=== PATIENT | female | born 1970 | race Caucasian/White ===

== ENCOUNTER → 2016-11-09 | Outpatient (CLI) | payer BC ==
[~2016-11-09] MED LIST: ALBUTEROL MDI; ATEN25TA PO; BENZ100C18 PO; CEFP500T4 PO; CTLP20T; DOXY100C2 PO; HYDR1TAB PO; LISI-596; LISI20TA; LORA0.5T PO; METH4TAB PO; NAPR-243 PO; PHEN37.555 PO
--- NOTE | 2016-11-09 16:09 | Diagnostic Imaging Report ---
PROCEDURE: MRI left joint lower extremity without contrast. TECHNIQUE: Multiplanar, multisequence non contrast-enhanced MRI of the left lower extremity was accomplished. INDICATION: Left knee injury nine months ago. Persistent left knee pain. FINDINGS: There is a dkcbx-bi-skvlggyc suprapatellar effusion. There is a small amount of fluid density anterior to the patella suggestive of prepatellar bursitis. There is a small Espinosa's cyst with a layering low intensity T2 and isointense T1 signal abnormality. The Espinosa's cyst measures 1.9 x 2.3 x 0.9 cm, and the internal abnormal intensity measures 1.3 cm, probably related to debris or a loose body. The extensor mechanism is intact. The ACL and PCL are intact. There is a complex tear involving the posterior root of the medial meniscus with a horizontal tear involving the posterior horn and the body of the medial meniscus. The anterior horn is relatively spared. The lateral meniscus appears intact. There is subchondral edema seen in the medial tibial condyle along the lateral aspect. This is likely degenerative reactive edema. There is 50-75% thinning of the cartilage in the medial compartment, more pronounced laterally. The cartilage in the lateral compartment is preserved. The cartilage in the patellofemoral compartment demonstrates slight fissuring and mild thinning along the medial facet. The MCL and the lateral collateral ligamentous complex appear intact. IMPRESSION: 1. Medial meniscus tears involving the posterior root, posterior horn, and the body of the meniscus. 2. There is a moderate degree of cartilage thinning and reactive subchondral edema in the medial compartment. 3. Small amount of fluid anterior to the patella suggestive of prepatellar bursitis. 4. Waqzj-gu-cgqddkvv suprapatellar effusion. 5. Small Espinosa's cyst containing dependent debris or loose body. Dictated by: Dictated on workstation # [id number]
== END ==
LOC: RAD 15:01
PROVIDERS: ATTEND Family Medicine
DX: S83.242A Other tear of medial meniscus, current injury, left knee, initial encounter (principal); M25.462 Effusion, left knee; M71.22 Synovial cyst of popliteal space [Baker], left knee; X58.XXXA Exposure to other specified factors, initial encounter; Y99.8 Other external cause status
CPT/HCPCS: 73721

== ENCOUNTER → 2017-01-08 | Outpatient (CLI) | payer BC ==
--- NOTE | 2017-01-08 13:26 | Diagnostic Imaging Report ---
EXAMINATION: Three views of the left ribs. INDICATION: Left rib pain. FINDINGS: No left rib fracture is seen. The left lung appears clear. IMPRESSION: No left rib fracture identified. Dictated by: Dictated on workstation # [id number]
== END ==
LOC: LAB 12:55
PROVIDERS: ATTEND Family Medicine
DX: S20.90XA Unspecified superficial injury of unspecified parts of thorax, initial encounter (principal); N64.52 Nipple discharge; W19.XXXA Unspecified fall, initial encounter
CPT/HCPCS: 71100

== ENCOUNTER 2017-05-31 14:45 | Emergency (ER) | payer BC ==
[~2017-05-31] VITALS: Ht 170.2 cm; Wt 104.3 kg
--- NOTE | 2017-05-31 16:42 | Diagnostic Imaging Report ---
PA and lateral views of the chest Indication: Nausea and vomiting Findings: The lungs are clear. The heart size is normal. There is no effusion or pneumothorax The mediastinum and anabella appear unremarkable. Impression: Unremarkable study. Dictated by: Dictated on workstation # [id number]
--- NOTE | 2017-05-31 16:46 | ED Cough/URI ---
General Chief Complaint: Cough/Cold/Flu Symptoms Stated Complaint: CONGESTION/N/V Nursing Triage Note: AMB TO ROOM SENT FROM DR SOTOMAYOR OFFICE WITH COUGH CONGESTION. DRINKING A COKE ON ADMIT History of Present Illness Time seen by provider: 16:50 Initial Comments Patient reports being seen by Dr. Walters early this afternoon, concerns of COPD exacerbation and sent to emergency department for follow-up. Patient reports she has a Ventolin inhaler at home, she's been using this every 4 hours with improvement after use. Reports green and yellow phlegm, she denies any shortness of air at this time. Timing/Duration: yesterday Severity/Quality: moderate, productive cough Prior Episodes/Possible Cause: frequent episodes Modifying Factors: Improves With Albuterol Inhaler, Improves With Coughing, Improves With Rest Associated Symptoms: cough, fever/chills, muscle aches Allergies and Home Medications Allergies Coded Allergies: Sulfa (Sulfonamide Antibiotics) (Unverified Allergy, Mild, SWELLING OF FACIAL AREA, 12/16/08) Home Medications Atenolol 25 Mg Tablet, 1 EACH PO DAILY, (Reported) Azithromycin 250 Mg Tablet, 250 MG PO UD, #6 TAKE 2 TABLETS TODAY, THEN TAKE 1 TABLET DAILY FOR 4 MORE DAYS Prescribed by: CANDACE ESPINOZA on 05/31/17 1722 Benzonatate 100 Mg Capsule, 1-2 EACH PO Q 4 - 6 HR PRN, #50 FOR COUGH Prescribed by: ALONZO GRACE on 10/08/12 1502 Cefprozil 500 Mg Tablet, 1 EACH PO BID, #20 FOR INFECTION Prescribed by: ALONZO GRACE on 10/08/12 1502 Citalopram Hydrobromide 20 Mg Tablet, (Reported) Lorazepam 0.5 Mg Tablet, 1 EACH PO DAILY, (Reported) Methylprednisolone 4 Mg/Dose-Pack Tab.ds.pk, 0 PO UD, #1 Prescribed by: ALONZO GRACE on 10/08/12 1502 Naproxen 500 Mg Tablet, 1 EACH PO BID PRN, #30 Ref 0 Prescribed by: MATTHEW HAMILTON on 02/23/09 1452 Phentermine Hcl 37.5 Mg Capsule, 37.5 MG PO DAILY, (Reported) Prednisone 10 Mg Tab.ds.pk, 10 MG PO UD, #1 Prescribed by: CANDACE ESPINOZA on 05/31/17 1722 [Albuterol Mdi] , (Reported) Constitutional: no symptoms reported, see HPI Respiratory: see HPI, cough, dyspnea on exertion, phlegm All Other Systems Reviewed Negative Unless Noted: Yes Past Rultylp-Tgdazk-Jvtytq Hx Patient Social History Alcohol Use: Denies Use Recreational Drug Use: No Smoking Status: Current Everyday Smoker Recent Foreign Travel: No Contact w/Someone Who Travel: No Recent Infectious Disease Expo: No Surgeries History of Surgeries: Yes Respiratory History of Respiratory Disorde: Yes Respiratory Disorders: Asthma, Pneumonia, COPD Cardiovascular Cardiac Disorders: Hypertension Psychosocial History of Psychiatric Problem: Yes Behavioral Health Disorders: Anxiety, Depression Reviewed Nursing Assessment Reviewed/Agree w Nursing PMH: Yes Physical Exam Vital Signs Vital Sign - Last 12Hours 05/31/17 15:45 Temp 98.2 Pulse 82 Resp 18 B/P (MAP) 120/80 Pulse Ox 98 O2 Delivery Room Air Capillary Refill : Less Than 3 Seconds General Appearance: WD/WN, no apparent distress (patient moving about in room, and leaving room going in hallway and bathroom with no difficulty) Eyes: Bilateral Eye Normal Inspection, Bilateral Eye PERRL, Bilateral Eye EOMI HEENT: PERRL/EOMI, normal ENT inspection, TMs normal, pharynx normal Neck: non-tender, full range of motion, supple, normal inspection Respiratory: chest non-tender, no respiratory distress, rhonchi, wheezing Cardiovascular: normal peripheral pulses, regular rate, rhythm, no murmur Gastrointestinal: normal bowel sounds, non tender, soft Extremities: normal range of motion, non-tender, normal inspection Neurologic/Psychiatric: no motor/sensory deficits, alert, normal mood/affect, oriented x 3 Skin: normal color, warm/dry Lymphatic: no adenopathy Progress/Results/Core Measures Results/Orders My Orders Orders - CANDACE ESPINOZA Chest Pa/Lat (2 View) (05/31/17 16:22) Albuterol/Ipra Inhalation Soln (Duoneb I (05/31/17 17:00) Svn Sm Volume Nebulizer Rt-Rfs (05/31/17 17:00) Dexamethasone Pf Injection (Decadron Pf (05/31/17 17:18) Dexamethasone Injection (Decadron Inject (05/31/17 17:23) Medications Given in ED Current Medications Medications Dose Ordered Sig/Leo Route Start Time Stop Time Status Last Admin Dose Admin Albuterol/ Ipratropium 3 ml ONCE ONCE INH 05/31/17 17:00 05/31/17 17:01 DC 05/31/17 17:10 3 ML Dexamethasone Sodium Phosphate 10 mg STK-MED ONCE .ROUTE 05/31/17 17:23 05/31/17 17:31 DC 05/31/17 17:33 10 MG Vital Signs/I&O Vital Sign - Last 12Hours 05/31/17 05/31/17 05/31/17 15:45 17:11 17:33 Temp 98.2 98.2 Pulse 82 82 Resp 18 18 B/P (MAP) 120/80 Pulse Ox 98 95 95 O2 Delivery Room Air Room Air Room Air Blood Pressure Mean: 93 Progress Note : Time: 16:50 Progress Note Initial evaluation completed. Recommended chest x-ray, DuoNeb treatment and Decadron IM. 1700 DuoNeb treatment with RT, patient reports after treatment improved air movement and less shortness of air. Lungs sounds improved slightly, with less wheezing. Diagnostic Imaging Diagonstic Imaging: Xray Plain Films/CT/US/NM/MRI: chest Comments NAME: [facility]ADILLA [facility] REC#: [id number] PT STATUS: REG ER : 1970 PHYSICIAN: CANDACE ESPINOZA ADMIT DATE: 05/31/17/ER Signed Date of Exam: 05/31/17 CHEST PA/LAT (2 VIEW) PA and lateral views of the chest Indication: Nausea and vomiting Findings: The lungs are clear. The heart size is normal. There is no effusion or pneumothorax The mediastinum and anabella appear unremarkable. Impression: Unremarkable study. Dictated by: Dictated on workstation # [id number] Dict: 05/31/17 1639 Trans: 05/31/17 1640 Interpreted by: TRISTIN PARRISH MD Electronically signed by: TRISTIN PARRISH MD 05/31/17 1640 Reviewed: Reviewed by Me Departure Impression Impression: Primary Impression: COPD exacerbation Additional Impression: Upper respiratory infection Qualified Codes: J06.9 - Acute upper respiratory infection, unspecified Disposition: 01 HOME, SELF-CARE Condition: Improved Departure-Patient Inst. Decision time for Depature: 17:15 Referrals: TIMUR WALTERS DO (PCP/Family) Primary Care Physician Patient Instructions: Acute Bronchitis, Adult (DC) Add. Discharge Instructions: Increase fluid intake. Follow-up with Dr. Walters early next week. Take medication as prescribed. Return to emergency department if symptoms worsen, difficulty breathing, fever greater than 101, or new problems. All discharge instructions reviewed with patient and/or family. Voiced understanding. Scripts Prednisone (Prednisone) 10 Mg Tab.ds.pk 10 MG PO UD, #1 PKG Prov: CANDACE ESPINOZA 05/31/17 Azithromycin (Zithromax) 250 Mg Tablet 250 MG PO UD, #6 TAB TAKE 2 TABLETS TODAY, THEN TAKE 1 TABLET DAILY FOR 4 MORE DAYS Prov: CANDACE ESPINOZA 05/31/17 Copy Copies To 1: TIMUR WALTERS AMY ARNP May 31, 2017 16:46
[2017-05-31] MEDS ORDERED: RT-ALBUTEROL/IPRATROPIUM 3 ML (DUONEB) VIAL INH ONE (17:00)
[2017-05-31] MEDS ORDERED: DEXAMETHASONE PF 10 MG/ML (DECADRON) VIAL IM STA (17:18)
[2017-05-31] MEDS ORDERED: PRED10TA22 PO (17:22)
[2017-05-31] MEDS ORDERED: AZIT250T PO (17:22)
[2017-05-31] MEDS ORDERED: DEXAMETHASONE 10 MG/ML (DECADRON) 1 ML VIAL ONE (17:23)
[2017-05-31 17:33] VITALS: BP 120/80
== END 2017-05-31 17:34 | disposition home or self-care (01) ==
LOC: EDUNIT# 14:45 → ER 14:47
DX: J44.1 Chronic obstructive pulmonary disease with (acute) exacerbation (principal); J06.9 Acute upper respiratory infection, unspecified; F41.9 Anxiety disorder, unspecified; F32.9 Major depressive disorder, single episode, unspecified; I10 Essential (primary) hypertension; F17.200 Nicotine dependence, unspecified, uncomplicated; Z87.01 Personal history of pneumonia (recurrent)
CPT/HCPCS: 71020; 94640; 99282